=== PATIENT | female | born 1950 | race Caucasian/White ===

== ENCOUNTER 2018-12-30 09:43 | Outpatient (CLI) | payer MEDICARE ==
--- NOTE | 2018-12-30 11:16 | MMO ---
Bilateral MAMMO Bilat Screen [facility]. CLINICAL HISTORY: Patient is 68 years old and is seen for screening. The patient has no family history of breast cancer. The patient has no personal history of cancer. VIEWS: The views performed were: bilateral craniocaudal with tomosynthesis and bilateral mediolateral oblique with tomosynthesis. FILMS COMPARED: The present examination has been compared to prior imaging studies performed at [facility] on 04/18/2013, 06/15/2014, 06/29/2015 and 06/30/2016. MAMMOGRAM FINDINGS: There are scattered fibroglandular densities. There are stable intramammary lymph nodes seen in both breasts. There are no suspicious masses, suspicious calcifications, or new areas of architectural distortion. IMPRESSION: THERE IS NO MAMMOGRAPHIC EVIDENCE OF MALIGNANCY. A ROUTINE FOLLOW-UP MAMMOGRAM IN 1 YEAR IS RECOMMENDED. THE RESULTS OF THIS EXAM WERE SENT TO THE PATIENT. ACR BI-RADS Category 2 - Benign finding MAMMOGRAPHY NOTE: 1. A negative mammogram report should not delay a biopsy if a dominant of clinically suspicious mass is present. 2. Approximately 10% to 15% of breast cancers are not detected by mammography. 3. Adenosis and dense breasts may obscure an underlying neoplasm.
--- NOTE | 2018-12-30 12:17 | BD ---
DEXA BONE DENSITY STUDY: Date: 12/30/18 HISTORY: 68-year-old postmenopausal female for screening for osteoporosis. COMPARISON: 07/13/15. FINDINGS: Lumbar Spine: BMD (g/cm2) L1 1.041 T-Score: 0.5 L2 1.118 T-Score: 0.8 L3 1.167 T-Score: 0.80 L4 1.131 T-Score: 0.6 L1-L4 1.118 T-Score: 0.6 Femoral Neck: 0.729 T-Score: -1.1 Total Femur: 0.867 T-Score: -0.6 IMPRESSION: Osteopenia. This patient has a 10 year WHO fracture risk of a major osteoporotic fracture of 4% and h ip fracture of 0.7%. POS: [facility]
== END 2018-12-30 09:44 | disposition home or self-care (01) ==
LOC: BICMAMMO 09:43
PROVIDERS: ATTEND Physician Assistant
DX: Z12.31 Encounter for screening mammogram for malignant neoplasm of breast (principal); M85.89 Other specified disorders of bone density and structure, multiple sites
CPT/HCPCS: 77063; 77067; 77080

== ENCOUNTER 2021-07-04 09:25 | Outpatient (CLI) | payer MEDICARE | END 2021-07-04 09:26 | disposition home or self-care (01) | LOC: BICMAMMO 09:25 | PROVIDERS: ATTEND Family Medicine | DX: Z12.31 Encounter for screening mammogram for malignant neoplasm of breast (principal) | CPT/HCPCS: 77063; 77067 ==

== ENCOUNTER 2022-07-30 10:12 | Outpatient (CLI) | payer MEDICARE | END 2022-07-30 10:13 | disposition home or self-care (01) | LOC: BICMAMMO 10:12 | PROVIDERS: ATTEND Family Medicine | DX: Z12.31 Encounter for screening mammogram for malignant neoplasm of breast (principal); M85.851 Other specified disorders of bone density and structure, right thigh; M85.852 Other specified disorders of bone density and structure, left thigh | CPT/HCPCS: 77063; 77067; 77080 ==

== ENCOUNTER 2023-08-18 10:37 | Outpatient (CLI) | payer MEDICARE | END 2023-08-18 10:38 | disposition home or self-care (01) | LOC: BICMAMMO 10:37 | PROVIDERS: ATTEND Family Medicine | DX: Z12.31 Encounter for screening mammogram for malignant neoplasm of breast (principal) | CPT/HCPCS: 77063; 77067 ==